=== PATIENT | male | born 1990 | race Caucasian/White ===

== ENCOUNTER 2018-06-23 23:23 | Emergency (ER) | payer BC, OTHER ==
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
== END 2018-06-24 00:14 | disposition home or self-care (01) ==
LOC: ER 23:23
DX: S01.112A Laceration without foreign body of left eyelid and periocular area, initial encounter (principal); W22.8XXA Striking against or struck by other objects, initial encounter; Y92.89 Other specified places as the place of occurrence of the external cause
CPT/HCPCS: 12011; 99283

== ENCOUNTER 2018-11-24 13:07 | Emergency (ER) | payer BC | END 2018-11-24 13:29 | disposition left against medical advice (07) | LOC: ER 13:07 → EDBD 13:07 → ER 13:29 | DX: Z53.9 Procedure and treatment not carried out, unspecified reason (principal) ==

== ENCOUNTER 2019-09-22 19:54 | Emergency (ER) | payer BC | END 2019-09-22 20:02 | disposition left against medical advice (07) | LOC: ER 19:54 | DX: Z53.9 Procedure and treatment not carried out, unspecified reason (principal) ==